=== PATIENT | female | born 1985 | race Caucasian/White ===

== ENCOUNTER 2016-09-20 15:57 | Inpatient (IN) | payer OTHER ==
[~2016-09-20] VITALS: Ht 175.3 cm; Wt 125.3 kg
[~2016-09-20 15:57] MED LIST: BACTRIM,SEPT1 TABLET PO; Diabeta,Micronase PO; KEFLEX500 MG PO; LIDOCAINE20 MG/1 M5 PO; Motrin PO; PREFERA-OB P1 TABLET PO; Percocet 5/325,Endoc PO; TYLENOL WITH C1 EACH PO; no meds
[2016-09-20 16:49] LABS: HEMATOCRIT 46.1 % (36.0-46.0); MCH 31.3 PG (29.0-34.0); MCHC 35.6 G/DL (30.0-36.0); MEAN PLAT.VOLUME 11.2 uM^3 (9.5-12.4); PLATELET COUNT 283 K/uL (156-360); RBC DIS.WIDTH-SD 38.5 % (39-53); RED BLOOD COUNT 5.24 M/uL (3.80-5.20); WHITE BLOOD COUNT 15.4 K/uL (4.1-10.2)
[2016-09-20 16:57] LABS: CHLORIDE 95 mEq/L (99-109); POTASSIUM 3.5 mEq/L (3.7-5.4); SODIUM 133 mEq/L (136-147)
[2016-09-20 16:59] LABS: GLUCOSE 369 mg/dL (70-99)
[2016-09-20 17:00] LABS: ANION GAP 15 MEQ/L (2-14)
[2016-09-20 17:01] LABS: TOTAL BILIRUBIN 0.6 mg/dL (0.0-1.0)
[2016-09-20 17:03] LABS: ALKALINE PHOSPHATASE 79 IU/L (3-129); GFR ESTIMATE (CALCULATED) > 59 mL/min/
[2016-09-20 17:04] LABS: UREA NITROGEN (BUN) 12 mg/dL (9-23)
[2016-09-20 17:18] LABS: QUANTITATIVE HCG < 4.0 MIU/ML
[2016-09-20 18:45] LABS: ADD MIUA? YES; BILIRUBIN NEGATIVE; BLOOD SMALL; COLOR YELLOW ((YELLOW)); GLUCOSE (STRIP) >=500; KETONES 20; LEUKOCYTES SMALL; NITRITE NEGATIVE; PROTEIN (STRIP) >=500; SPECIFIC GRAVITY 1.042 (1.000-1.030); UROBILINOGEN 0.2 MG/DL (0.2-1.0)
[2016-09-20 18:52] LABS: BACTERIA RARE /HPF; CALCIUM OXALATE CRYSTALS 1+ /HPF; EPITHELIAL CELLS 1+ /HPF; MUCUS NONE SEEN /LPF; RED BLOOD CELLS 40-50 /HPF (0-5); UCUL ADDED? NO; WHITE BLOOD CELLS 40-50 /HPF (0-5)
[2016-09-20 21:20] LABS: POINT-OF-CARE METER ID UU14100415
[2016-09-20 22:25] LABS: LIPASE 242 U/L (1.0-51.0)
[2016-09-20] MEDS ORDERED: MONISTAT 11 EACH VG (23:16)
[2016-09-20] MEDS ORDERED: FLINTSTONES GUM16 MG PO (23:16)
[2016-09-20] MEDS ORDERED: HYDROCHLOROTHIA25 MG PO (23:16)
[2016-09-21] VITALS (17 sets, daily range): BP systolic 80–163; BP diastolic 60–108
[2016-09-21 09:27] LABS: HEMATOCRIT 60.9 % (36.0-46.0); MCH 31.5 PG (29.0-34.0); MCHC 33.7 G/DL (30.0-36.0); RBC DIS.WIDTH-SD 43.5 % (39-53); WHITE BLOOD COUNT 11.3 K/uL (4.1-10.2)
[2016-09-21 09:38] LABS: CHLORIDE 89 mEq/L (99-109); POTASSIUM 3.9 mEq/L (3.7-5.4); SODIUM 131 mEq/L (136-147)
[2016-09-21 09:39] LABS: MCV 93.5 FL (83-99); RED BLOOD COUNT 6.51 M/uL (3.80-5.20)
[2016-09-21 09:41] LABS: ANION GAP 27 MEQ/L (2-14)
[2016-09-21 09:44] LABS: ALKALINE PHOSPHATASE 72 IU/L (3-129)
[2016-09-21 09:45] LABS: GFR ESTIMATE (CALCULATED) 37 mL/min/; TOTAL BILIRUBIN 1.5 mg/dL (0.0-1.0)
[2016-09-21 09:51] LABS: GLUCOSE 708 mg/dL (70-99)
[2016-09-21 10:05] LABS: UREA NITROGEN (BUN) 15 mg/dL (9-23)
[2016-09-21 10:19] LABS: LIPASE 3194 U/L (1.0-51.0); PLATELET COUNT UNABLE TO REPORT K/uL (156-360)
[2016-09-21 10:52] LABS: TRIGLYCERIDES 1686 MG/DL (Normal: <150)
[2016-09-21 13:02] LABS: GLUCOSE 711 mg/dL (70-99)
[2016-09-21 13:05] LABS: HEMATOCRIT 59.7 % (36.0-46.0); MCH 31.3 PG (29.0-34.0); MCHC 33.8 G/DL (30.0-36.0); MCV 92.6 FL (83-99); MEAN PLAT.VOLUME 11.8 uM^3 (9.5-12.4); PLATELET COUNT 301 K/uL (156-360); RBC DIS.WIDTH-CV 13.2 % (11.8-14.6); RBC DIS.WIDTH-SD 43.4 % (39-53); RED BLOOD COUNT 6.45 M/uL (3.80-5.20); WHITE BLOOD COUNT 10.8 K/uL (4.1-10.2)
[2016-09-21 13:10] LABS: CHLORIDE 94 mEq/L (99-109); POTASSIUM 4.6 mEq/L (3.7-5.4); SODIUM 127 mEq/L (136-147)
[2016-09-21 13:11] LABS: MAGNESIUM 1.1 mg/dL (1.3-2.7)
[2016-09-21 13:14] LABS: ANION GAP 19 MEQ/L (2-14)
[2016-09-21 13:15] LABS: TOTAL BILIRUBIN 1.5 mg/dL (0.0-1.0)
[2016-09-21 13:16] LABS: ALKALINE PHOSPHATASE 62 IU/L (3-129)
[2016-09-21 13:17] LABS: GFR ESTIMATE (CALCULATED) 31 mL/min/
[2016-09-21 13:18] LABS: UREA NITROGEN (BUN) 18 mg/dL (9-23)
[2016-09-21 13:32] LABS: GLUCOSE 711 mg/dL (70-99)
[2016-09-21 13:49] LABS: ABS NEUTROPHIL COUNT 8.6; EOSINOPHIL ABS CT 0; PLAT.SUFFICIENCY ADEQUATE; PLATELET CLUMPS PRESENT - PLATELET COUNT APPEARS ADQ.
[2016-09-21 14:08] LABS: Estimated Average Glucose 255 mg/dL (70-123); HEMOGLOBIN A1c (GLYCOHEMOGLOB) 10.5 % HGB (Below 5.7)
[2016-09-21 14:17] LABS: METH RESISTANT S AUREUS PCR NEGATIVE (NEGATIVE); PROBE CHECK PASS; SPECIMEN PROCESSING CONTROL PASS
[2016-09-21 16:33] LABS: ADD MIUA? YES; BILIRUBIN NEGATIVE; BLOOD SMALL; COLOR YELLOW ((YELLOW)); GLUCOSE (STRIP) >=500; KETONES NEGATIVE; LEUKOCYTES NEGATIVE; NITRITE NEGATIVE; PROTEIN (STRIP) 100; SPECIFIC GRAVITY 1.023 (1.000-1.030); UROBILINOGEN 0.2 MG/DL (0.2-1.0)
[2016-09-21 16:37] LABS: ANION GAP 16 MEQ/L (2-14); CHLORIDE 95 MEQ/L (99-109); POTASSIUM 3.9 MEQ/L (3.7-5.4); SAMPLE HEMOLYSIS CHECK 0; SAMPLE ICTERIC CHECK 0; SAMPLE LIPEMIA CHECK 0; SODIUM 126 MEQ/L (136-147)
[2016-09-21 16:47] LABS: GFR ESTIMATE (CALCULATED) 35 mL/min/; GLUCOSE 536 mg/dL (70-99); UREA NITROGEN (BUN) 19 mg/dL (9-23)
[2016-09-21 16:47] LABS: BACTERIA RARE /HPF; EPITHELIAL CELLS 1+ /HPF; MUCUS 1+ /LPF; UCUL ADDED? NO
[2016-09-21 16:56] LABS: UR CREATININE CONCENTRATION 122.7 MG/DL
[2016-09-21 20:17] LABS: ANION GAP 17 MEQ/L (2-14); CHLORIDE 97 MEQ/L (99-109); SAMPLE HEMOLYSIS CHECK 1; SAMPLE ICTERIC CHECK 0; SAMPLE LIPEMIA CHECK 0; SODIUM 127 MEQ/L (136-147)
[2016-09-21 20:22] LABS: GFR ESTIMATE (CALCULATED) 43 mL/min/; GLUCOSE 381 mg/dL (70-99); UREA NITROGEN (BUN) 20 mg/dL (9-23)
[2016-09-21 20:23] LABS: POTASSIUM 3.6 MEQ/L (3.7-5.4)
[2016-09-21 20:44] LABS: POINT-OF-CARE METER ID UU14174217
[2016-09-21 20:56] LABS: HDL CHOLESTEROL 9 MG/DL (Desirable>=50); NON-HDL CHOLESTEROL 155 mg/dL (Desirable<160); TOTAL CHOLESTEROL 164 mg/dL (Desirable<200); TRIGLYCERIDES 1127 MG/DL (Normal: <150)
[2016-09-21 21:44] LABS: POINT-OF-CARE METER ID UU14162636
[2016-09-21 22:45] LABS: POINT-OF-CARE METER ID UU14162636
[2016-09-21 23:51] LABS: POINT-OF-CARE METER ID UU14162636
[2016-09-22] VITALS (20 sets, daily range): BP systolic 86–168; BP diastolic 70–111
[2016-09-22 00:48] LABS: CHLORIDE 99 mEq/L (99-109); POTASSIUM 3.7 mEq/L (3.7-5.4); SODIUM 130 mEq/L (136-147)
[2016-09-22 00:50] LABS: GLUCOSE 278 mg/dL (70-99)
[2016-09-22 00:51] LABS: ANION GAP 14 MEQ/L (2-14)
[2016-09-22 00:54] LABS: GFR ESTIMATE (CALCULATED) 56 mL/min/
[2016-09-22 00:55] LABS: UREA NITROGEN (BUN) 21 mg/dL (9-23)
[2016-09-22 01:10] LABS: POINT-OF-CARE METER ID UU13113731
[2016-09-22 01:57] LABS: POINT-OF-CARE METER ID UU13113803
[2016-09-22 02:54] LABS: POINT-OF-CARE METER ID UU13113803
[2016-09-22 04:11] LABS: POINT-OF-CARE METER ID UU13113803
[2016-09-22 05:06] LABS: POINT-OF-CARE METER ID UU13113803
[2016-09-22 06:06] LABS: POINT-OF-CARE METER ID UU13113803
[2016-09-22 06:23] LABS: LIPASE 984 U/L (1.0-51.0)
[2016-09-22 06:27] LABS: AMYLASE 230 IU/L (1-118); ANION GAP 11 MEQ/L (2-14); CHLORIDE 99 MEQ/L (99-109); GFR ESTIMATE (CALCULATED) > 59 mL/min/; GLUCOSE 167 mg/dL (70-99); NON-HDL CHOLESTEROL 134 mg/dL (Desirable<160); POTASSIUM 3.3 MEQ/L (3.7-5.4); SAMPLE HEMOLYSIS CHECK 0; SAMPLE ICTERIC CHECK 0; SAMPLE LIPEMIA CHECK 0; SODIUM 129 MEQ/L (136-147); TOTAL CHOLESTEROL 141 mg/dL (Desirable<200); TRIGLYCERIDES 915 MG/DL (Normal: <150); UREA NITROGEN (BUN) 19 mg/dL (9-23)
[2016-09-22 06:29] LABS: HDL CHOLESTEROL 7 MG/DL (Desirable>=50)
[2016-09-22 06:55] LABS: ABS NEUTROPHIL COUNT 8.2; ATYPICAL LYMPHOCYTE 4.4 %; EOSINOPHIL ABS CT 0; HEMATOCRIT 52.1 % (36.0-46.0); INSTRUMENT ABS NEUTROPHIL CT 8.1 K/uL; LYMPHOCYTES 8.9 % (15.0-45.0); MCH 31.7 PG (29.0-34.0); MCHC 34.9 G/DL (30.0-36.0); MCV 90.6 FL (83-99); MEAN PLAT.VOLUME 11.4 uM^3 (9.5-12.4); PLAT.SUFFICIENCY ADEQUATE; PLATELET COUNT 222 K/uL (156-360); POIKILOCYTOSIS 1+; RBC DIS.WIDTH-SD 42.7 % (39-53); RED BLOOD COUNT 5.75 M/uL (3.80-5.20); SPHEROCYTES 1+
[2016-09-22 07:03] LABS: SEG.NEUTROPHILS 59.3 % (46.0-76.0)
[2016-09-22 07:38] LABS: POINT-OF-CARE METER ID UU13113803
[2016-09-22 08:56] LABS: POINT-OF-CARE METER ID UU13113803
[2016-09-22 10:15] LABS: ANION GAP 13 MEQ/L (2-14); CHLORIDE 99 MEQ/L (99-109); GFR ESTIMATE (CALCULATED) > 59 mL/min/; GLUCOSE 141 mg/dL (70-99); SAMPLE HEMOLYSIS CHECK 2; SAMPLE ICTERIC CHECK 0; SAMPLE LIPEMIA CHECK 0; SODIUM 130 MEQ/L (136-147); UREA NITROGEN (BUN) 20 mg/dL (9-23)
[2016-09-22 10:18] LABS: POTASSIUM 3.7 MEQ/L (3.7-5.4)
[2016-09-22 11:51] LABS: POINT-OF-CARE METER ID UU13113803
[2016-09-22 12:37] LABS: POINT-OF-CARE METER ID UU14174217
[2016-09-22 12:37] LABS: POINT-OF-CARE METER ID UU14162636
[2016-09-22 12:37] LABS: POINT-OF-CARE METER ID UU14174217
[2016-09-22 12:37] LABS: POINT-OF-CARE METER ID UU14174217
[2016-09-22 12:37] LABS: POINT-OF-CARE METER ID UU14162636
[2016-09-22 13:45] LABS: POINT-OF-CARE METER ID UU13113803
[2016-09-22 14:23] LABS: ANION GAP 13 MEQ/L (2-14); CHLORIDE 101 MEQ/L (99-109); GFR ESTIMATE (CALCULATED) > 59 mL/min/; GLUCOSE 151 mg/dL (70-99); NON-HDL CHOLESTEROL 127 mg/dL (Desirable<160); SAMPLE HEMOLYSIS CHECK 1; SAMPLE ICTERIC CHECK 0; SAMPLE LIPEMIA CHECK 0; SODIUM 131 MEQ/L (136-147); TOTAL CHOLESTEROL 132 mg/dL (Desirable<200); TRIGLYCERIDES 826 MG/DL (Normal: <150); UREA NITROGEN (BUN) 19 mg/dL (9-23)
[2016-09-22 14:27] LABS: HDL CHOLESTEROL 5 MG/DL (Desirable>=50); POTASSIUM 3.7 MEQ/L (3.7-5.4)
[2016-09-22 15:40] LABS: POINT-OF-CARE METER ID UU13113731
[2016-09-22 17:40] LABS: POINT-OF-CARE METER ID UU13113803
[2016-09-22 21:53] LABS: POINT-OF-CARE METER ID UU13113803
[2016-09-22 21:58] LABS: ALKALINE PHOSPHATASE 61 IU/L (3-129); ANION GAP 8 MEQ/L (2-14); CHLORIDE 103 MEQ/L (99-109); GFR ESTIMATE (CALCULATED) > 59 mL/min/; GLUCOSE 150 mg/dL (70-99); POTASSIUM 3.2 MEQ/L (3.7-5.4); SAMPLE HEMOLYSIS CHECK 0; SAMPLE ICTERIC CHECK 0; SAMPLE LIPEMIA CHECK 0; SODIUM 131 MEQ/L (136-147); TOTAL BILIRUBIN 0.7 MG/DL (0.0-1.0); UREA NITROGEN (BUN) 17 mg/dL (9-23)
[2016-09-23] VITALS (22 sets, daily range): BP systolic 126–170; BP diastolic 76–128
[2016-09-23 00:09] LABS: POINT-OF-CARE METER ID UU13113803
[2016-09-23 06:10] LABS: HEMATOCRIT 39.1 % (36.0-46.0); MCH 30.9 PG (29.0-34.0); MCV 90.9 FL (83-99); MEAN PLAT.VOLUME 11.5 uM^3 (9.5-12.4); PLATELET COUNT 198 K/uL (156-360); RBC DIS.WIDTH-SD 43.2 % (39-53); WHITE BLOOD COUNT 11.2 K/uL (4.1-10.2)
[2016-09-23 06:55] LABS: ANION GAP 9 MEQ/L (2-14); CHLORIDE 106 MEQ/L (99-109); GFR ESTIMATE (CALCULATED) > 59 mL/min/; GLUCOSE 158 mg/dL (70-99); MAGNESIUM 1.8 mg/dl (1.3-2.7); POTASSIUM 3.8 MEQ/L (3.7-5.4); SAMPLE HEMOLYSIS CHECK 0; SAMPLE ICTERIC CHECK 0; SAMPLE LIPEMIA CHECK 0; SODIUM 132 MEQ/L (136-147); TRIGLYCERIDES 436 MG/DL (Normal: <150); UREA NITROGEN (BUN) 13 mg/dL (9-23)
[2016-09-23 07:06] LABS: AMYLASE 143 IU/L (1-118)
[2016-09-23 08:44] LABS: ABS NEUTROPHIL COUNT 9.5; ANISOCYTOSIS 1+; ATYPICAL LYMPHOCYTE 0.9 %; BAND NEUTROPHILS 27.1 % (0-8.0); EOSINOPHIL ABS CT 0.1; EOSINOPHILS 0.9 % (0-5.0); INSTRUMENT ABS NEUTROPHIL CT 9.1 K/uL; LYMPHOCYTES 6.6 % (15.0-45.0); METAMYELOCYTES 0.9 %; PLAT.SUFFICIENCY ADEQUATE
[2016-09-23 09:17] LABS: POINT-OF-CARE METER ID UU14174217
[2016-09-23 10:22] LABS: POINT-OF-CARE METER ID UU14174217
[2016-09-23 11:30] LABS: POINT-OF-CARE METER ID UU14174217
[2016-09-23 13:11] LABS: POINT-OF-CARE METER ID UU14174217
[2016-09-23 15:25] LABS: POINT-OF-CARE METER ID UU14174217
[2016-09-23 15:26] LABS: ANION GAP 8 MEQ/L (2-14); CHLORIDE 107 MEQ/L (99-109); GFR ESTIMATE (CALCULATED) > 59 mL/min/; GLUCOSE 152 mg/dL (70-99); POTASSIUM 3.9 MEQ/L (3.7-5.4); SAMPLE HEMOLYSIS CHECK 0; SAMPLE ICTERIC CHECK 0; SAMPLE LIPEMIA CHECK 0; SODIUM 134 MEQ/L (136-147); UREA NITROGEN (BUN) 9 mg/dL (9-23)
[2016-09-23 17:12] LABS: POINT-OF-CARE METER ID UU14174217
[2016-09-23 18:41] LABS: POINT-OF-CARE METER ID UU14174217
[2016-09-23 19:44] LABS: POINT-OF-CARE METER ID UU14174217
[2016-09-23 20:57] LABS: POINT-OF-CARE METER ID UU14174217
[2016-09-23 21:59] LABS: POINT-OF-CARE METER ID UU13113803
[2016-09-24] VITALS (19 sets, daily range): BP systolic 114–161; BP diastolic 72–105
[2016-09-24 00:18] LABS: POINT-OF-CARE METER ID UU13113803
[2016-09-24 01:47] LABS: POINT-OF-CARE METER ID UU13113803
[2016-09-24 05:29] LABS: POINT-OF-CARE METER ID UU13113803
[2016-09-24 06:21] LABS: HEMATOCRIT 34.7 % (36.0-46.0); MCH 30.9 PG (29.0-34.0); MCHC 33.1 G/DL (30.0-36.0); MCV 93.3 FL (83-99); MEAN PLAT.VOLUME 11.4 uM^3 (9.5-12.4); PLATELET COUNT 181 K/uL (156-360); RBC DIS.WIDTH-CV 13.2 % (11.8-14.6); RBC DIS.WIDTH-SD 45.6 % (39-53); RED BLOOD COUNT 3.72 M/uL (3.80-5.20); WHITE BLOOD COUNT 10.2 K/uL (4.1-10.2)
[2016-09-24 07:24] LABS: ABS NEUTROPHIL COUNT 7.9; EOSINOPHIL ABS CT 0.2; INSTRUMENT ABS NEUTROPHIL CT 8.2 K/uL; PLAT.SUFFICIENCY ADEQUATE
[2016-09-24 07:41] LABS: ANION GAP 14 MEQ/L (2-14); CHLORIDE 104 MEQ/L (99-109); GFR ESTIMATE (CALCULATED) > 59 mL/min/; GLUCOSE 146 mg/dL (70-99); MAGNESIUM 1.9 mg/dl (1.3-2.7); POTASSIUM 3.6 MEQ/L (3.7-5.4); SAMPLE HEMOLYSIS CHECK 0; SAMPLE ICTERIC CHECK 0; SAMPLE LIPEMIA CHECK 0; SODIUM 137 MEQ/L (136-147); UREA NITROGEN (BUN) 6 mg/dL (9-23)
[2016-09-24 08:45] LABS: TRIGLYCERIDES 265 MG/DL (Normal: <150)
[2016-09-24 08:54] LABS: POINT-OF-CARE METER ID UU13113803
[2016-09-24 10:37] LABS: Estimated Average Glucose 252 mg/dL (70-123); HEMOGLOBIN A1c (GLYCOHEMOGLOB) 10.4 % HGB (Below 5.7)
[2016-09-24 12:25] LABS: POINT-OF-CARE METER ID UU13113803
[2016-09-24 17:05] LABS: POINT-OF-CARE METER ID UU13113803
[2016-09-24 21:39] LABS: POINT-OF-CARE METER ID UU14162636
[2016-09-25] VITALS (8 sets, daily range): BP systolic 127–210; BP diastolic 77–98
[2016-09-25 02:02] LABS: POINT-OF-CARE METER ID UU14162636
[2016-09-25 05:43] LABS: POINT-OF-CARE METER ID UU14162636
[2016-09-25 06:00] LABS: HEMATOCRIT 33.9 % (36.0-46.0); MCH 30.7 PG (29.0-34.0); MCHC 33.3 G/DL (30.0-36.0); MCV 92.1 FL (83-99); MEAN PLAT.VOLUME 10.7 uM^3 (9.5-12.4); NRBC (%) 0.3 /100 WBC (0-0); PLATELET COUNT 214 K/uL (156-360); RBC DIS.WIDTH-CV 13.3 % (11.8-14.6); RBC DIS.WIDTH-SD 45.1 % (39-53); RED BLOOD COUNT 3.68 M/uL (3.80-5.20); WHITE BLOOD COUNT 9.3 K/uL (4.1-10.2)
[2016-09-25 06:19] LABS: CHLORIDE 98 MEQ/L (99-109); GFR ESTIMATE (CALCULATED) > 59 mL/min/; GLUCOSE 171 mg/dL (70-99); POTASSIUM 3.4 MEQ/L (3.7-5.4); SODIUM 135 MEQ/L (136-147); UREA NITROGEN (BUN) 4 mg/dL (9-23)
[2016-09-25 06:28] LABS: ANION GAP 12 MEQ/L (2-14); CHLORIDE 98 MEQ/L (99-109); GFR ESTIMATE (CALCULATED) > 59 mL/min/; GLUCOSE 171 mg/dL (70-99); POTASSIUM 3.4 MEQ/L (3.7-5.4); SAMPLE HEMOLYSIS CHECK 0; SAMPLE ICTERIC CHECK 0; SAMPLE LIPEMIA CHECK 0; SODIUM 134 MEQ/L (136-147); TOTAL BILIRUBIN 0.7 MG/DL (0.0-1.0); UREA NITROGEN (BUN) 4 mg/dL (9-23)
[2016-09-25 06:29] LABS: ALKALINE PHOSPHATASE 105 IU/L (3-129)
[2016-09-25 06:31] LABS: ANION GAP 12 MEQ/L (2-14); SAMPLE HEMOLYSIS CHECK 0; SAMPLE ICTERIC CHECK 0; SAMPLE LIPEMIA CHECK 0
[2016-09-25 06:35] LABS: MAGNESIUM 2.2 mg/dl (1.3-2.7)
[2016-09-25 08:14] LABS: POINT-OF-CARE METER ID UU13113731
[2016-09-25 09:30] LABS: ABS NEUTROPHIL COUNT 7.7; EOSINOPHIL ABS CT 0; INSTRUMENT ABS NEUTROPHIL CT 6.6 K/uL
[2016-09-25 12:44] LABS: POINT-OF-CARE METER ID UU13113731
[2016-09-25 13:42] LABS: ANION GAP 10 MEQ/L (2-14); CHLORIDE 100 MEQ/L (99-109); GFR ESTIMATE (CALCULATED) > 59 mL/min/; GLUCOSE 191 mg/dL (70-99); POTASSIUM 3.1 MEQ/L (3.7-5.4); SAMPLE HEMOLYSIS CHECK 0; SAMPLE ICTERIC CHECK 0; SAMPLE LIPEMIA CHECK 0; SODIUM 135 MEQ/L (136-147); UREA NITROGEN (BUN) 3 mg/dL (9-23)
[2016-09-25 17:23] LABS: POINT-OF-CARE METER ID UU14162636; POINT-OF-CARE USER ID 606021424
[2016-09-25 21:38] LABS: POINT-OF-CARE METER ID UU13113803
[2016-09-26] VITALS: BP 149/96
[2016-09-26 00:19] LABS: POINT-OF-CARE METER ID UU13113803
[2016-09-26 04:00] VITALS: BP 132/92
[2016-09-26 06:24] LABS: ANION GAP 14 MEQ/L (2-14); CHLORIDE 98 MEQ/L (99-109); GFR ESTIMATE (CALCULATED) > 59 mL/min/; GLUCOSE 179 mg/dL (70-99); LIPASE 261 U/L (1.0-51.0); MAGNESIUM 1.9 mg/dl (1.3-2.7); POTASSIUM 3.2 MEQ/L (3.7-5.4); SAMPLE HEMOLYSIS CHECK 0; SAMPLE ICTERIC CHECK 0; SAMPLE LIPEMIA CHECK 0; SODIUM 135 MEQ/L (136-147); UREA NITROGEN (BUN) 5 mg/dL (9-23)
[2016-09-26 06:25] LABS: AMYLASE 51 IU/L (1-118)
[2016-09-26 06:37] LABS: HEMATOCRIT 36.6 % (36.0-46.0); MCH 30.5 PG (29.0-34.0); MCHC 32.8 G/DL (30.0-36.0); MCV 92.9 FL (83-99); MEAN PLAT.VOLUME 10.8 uM^3 (9.5-12.4); NRBC (%) 0.7 /100 WBC (0-0); PLATELET COUNT 248 K/uL (156-360); RBC DIS.WIDTH-CV 13.4 % (11.8-14.6); RBC DIS.WIDTH-SD 46.1 % (39-53); RED BLOOD COUNT 3.94 M/uL (3.80-5.20); WHITE BLOOD COUNT 9.2 K/uL (4.1-10.2)
[2016-09-26 08:00] VITALS: BP 148/87
[2016-09-26 09:03] LABS: ABS NEUTROPHIL COUNT 7.6; EOSINOPHIL ABS CT 0; INSTRUMENT ABS NEUTROPHIL CT 6.9 K/uL; PLAT.SUFFICIENCY ADEQUATE; POLYCHROMASIA 1+
[2016-09-26 12:00] VITALS: BP 154/88
[2016-09-26 12:43] LABS: POINT-OF-CARE METER ID UU13113803
[2016-09-26 16:00] VITALS: BP 133/93
[2016-09-26 17:58] LABS: POINT-OF-CARE METER ID UU13113803
[2016-09-26 19:45] LABS: POINT-OF-CARE METER ID UU13113803
[2016-09-26 20:00] VITALS: BP 164/101
[2016-09-27] VITALS (7 sets, daily range): BP systolic 136–168; BP diastolic 81–108
[2016-09-27 00:30] LABS: POINT-OF-CARE METER ID UU13113803
[2016-09-27 04:27] LABS: POINT-OF-CARE METER ID UU13113803
[2016-09-27 06:00] LABS: HEMATOCRIT 37.2 % (36.0-46.0); MCH 30.2 PG (29.0-34.0); MCHC 32.8 G/DL (30.0-36.0); MCV 92.1 FL (83-99); MEAN PLAT.VOLUME 10.7 uM^3 (9.5-12.4); NRBC (%) 0.3 /100 WBC (0-0); PLATELET COUNT 231 K/uL (156-360); RBC DIS.WIDTH-CV 13.2 % (11.8-14.6); RBC DIS.WIDTH-SD 45.4 % (39-53); RED BLOOD COUNT 4.04 M/uL (3.80-5.20); WHITE BLOOD COUNT 8.9 K/uL (4.1-10.2)
[2016-09-27 06:49] LABS: ANION GAP 12 MEQ/L (2-14); CHLORIDE 98 MEQ/L (99-109); GFR ESTIMATE (CALCULATED) > 59 mL/min/; GLUCOSE 174 mg/dL (70-99); SAMPLE HEMOLYSIS CHECK 0; SAMPLE ICTERIC CHECK 0; SAMPLE LIPEMIA CHECK 0; SODIUM 136 MEQ/L (136-147); UREA NITROGEN (BUN) 5 mg/dL (9-23)
[2016-09-27 06:50] LABS: ABS NEUTROPHIL COUNT 6.8; ATYPICAL LYMPHOCYTE 0.9 %; BAND NEUTROPHILS 30.4 % (0-8.0); EOSINOPHIL ABS CT 0; INSTRUMENT ABS NEUTROPHIL CT 6.7 K/uL; LYMPHOCYTES 9.6 % (15.0-45.0); METAMYELOCYTES 0.9 %; MYELOCYTES 1.7 %; NUCLEATED RBC'S 0.9; PLAT.SUFFICIENCY ADEQUATE; SEG.NEUTROPHILS 46.1 % (46.0-76.0)
[2016-09-27 08:47] LABS: POINT-OF-CARE METER ID UU13113731
[2016-09-27 17:38] LABS: POINT-OF-CARE METER ID UU13113807; POINT-OF-CARE USER ID 606021404
[2016-09-27 22:31] LABS: C DIFF TOXIN NEGATIVE (NEGATIVE)
[2016-09-27 22:36] LABS: PROBE CHECK PASS; SPECIMEN PROCESSING CONTROL PASS
[2016-09-27 23:19] LABS: POINT-OF-CARE METER ID UU13113807
[2016-09-28 00:11] VITALS: BP 170/92
[2016-09-28 04:00] VITALS: BP 144/72
[2016-09-28 07:03] LABS: HEMATOCRIT 34.6 % (36.0-46.0); MCH 30.2 PG (29.0-34.0); MCHC 33.2 G/DL (30.0-36.0); MCV 90.8 FL (83-99); MEAN PLAT.VOLUME 10.3 uM^3 (9.5-12.4); PLATELET COUNT 265 K/uL (156-360); RBC DIS.WIDTH-CV 13.2 % (11.8-14.6); RBC DIS.WIDTH-SD 44.4 % (39-53); RED BLOOD COUNT 3.81 M/uL (3.80-5.20); WHITE BLOOD COUNT 8.9 K/uL (4.1-10.2)
[2016-09-28 07:29] LABS: ANION GAP 11 MEQ/L (2-14); CHLORIDE 102 MEQ/L (99-109); GFR ESTIMATE (CALCULATED) > 59 mL/min/; GLUCOSE 195 mg/dL (70-99); MAGNESIUM 1.8 mg/dl (1.3-2.7); SAMPLE HEMOLYSIS CHECK 0; SAMPLE ICTERIC CHECK 0; SAMPLE LIPEMIA CHECK 0; SODIUM 138 MEQ/L (136-147); UREA NITROGEN (BUN) 4 mg/dL (9-23)
[2016-09-28 08:00] VITALS: BP 164/94
[2016-09-28 08:10] LABS: POINT-OF-CARE METER ID UU13113807; POINT-OF-CARE USER ID 606021404
[2016-09-28 08:35] LABS: ABS NEUTROPHIL COUNT 7.5; ANISOCYTOSIS 1+; BAND NEUTROPHILS 36.2 % (0-8.0); EOSINOPHIL ABS CT 0.1; EOSINOPHILS 0.9 % (0-5.0); INSTRUMENT ABS NEUTROPHIL CT 7.2 K/uL; LYMPHOCYTES 10.3 % (15.0-45.0); PLAT.SUFFICIENCY ADEQUATE; POLYCHROMASIA 1+; SEG.NEUTROPHILS 48.3 % (46.0-76.0)
[2016-09-28 11:49] LABS: POINT-OF-CARE METER ID UU13113807; POINT-OF-CARE USER ID 606021404
[2016-09-28 12:26] VITALS: BP 171/99
[2016-09-28 16:13] VITALS: BP 159/97
[2016-09-28 17:35] LABS: POINT-OF-CARE METER ID UU13113807
[2016-09-28] MEDS ORDERED: NIACIN ER750 MG PO (21:02)
[2016-09-28] MEDS ORDERED: LOPRESSOR25 MG PO (21:02)
[2016-09-28] MEDS ORDERED: ATORVASTATIN CA80 MG PO (21:02)
[2016-09-28] MEDS ORDERED: MYLICON,MYLANTA80 MG PO (21:05)
[2016-09-28] MEDS ORDERED: PANTOPRAZOLE SO40 MG PO (21:06)
[2016-09-28] MEDS ORDERED: LOFIBRA,TRIGLI160 MG PO (21:07)
[2016-09-28] MEDS ORDERED: KLOR-CON M2020 MEQ PO (21:08)
[2016-09-28] MEDS ORDERED: Thiamine,Vitamin B1 PO (21:10)
[2016-09-28] MEDS ORDERED: ENDOCET 5-3251 EACH PO (21:10)
[2016-09-28] MEDS ORDERED: METFORMIN HCL1000 MG PO (21:13)
[2016-09-28] MEDS ORDERED: VALSARTAN160 MG PO (21:26)
[2016-09-28 21:35] LABS: POINT-OF-CARE METER ID UU13113807
[2016-09-28 23:15] VITALS: BP 141/92
[2016-09-29 00:15] VITALS: BP 140/91
[2016-09-29 06:12] LABS: HEMATOCRIT 34.6 % (36.0-46.0); MCH 30.2 PG (29.0-34.0); MCHC 32.9 G/DL (30.0-36.0); MCV 91.5 FL (83-99); MEAN PLAT.VOLUME 10.3 uM^3 (9.5-12.4); PLATELET COUNT 281 K/uL (156-360); RBC DIS.WIDTH-CV 13.2 % (11.8-14.6); RBC DIS.WIDTH-SD 44.7 % (39-53); RED BLOOD COUNT 3.78 M/uL (3.80-5.20); WHITE BLOOD COUNT 10.4 K/uL (4.1-10.2)
[2016-09-29 06:41] LABS: ANION GAP 11 MEQ/L (2-14); CHLORIDE 101 MEQ/L (99-109); GFR ESTIMATE (CALCULATED) > 59 mL/min/; GLUCOSE 164 mg/dL (70-99); LIPASE 358 U/L (1.0-51.0); MAGNESIUM 1.8 mg/dl (1.3-2.7); POTASSIUM 3.2 MEQ/L (3.7-5.4); SAMPLE HEMOLYSIS CHECK 0; SAMPLE ICTERIC CHECK 0; SAMPLE LIPEMIA CHECK 0; SODIUM 136 MEQ/L (136-147); UREA NITROGEN (BUN) 5 mg/dL (9-23)
[2016-09-29 08:00] VITALS: BP 161/99
[2016-09-29 08:01] LABS: ABS NEUTROPHIL COUNT 8.5; BAND NEUTROPHILS 17.1 % (0-8.0); EOSINOPHIL ABS CT 0; INSTRUMENT ABS NEUTROPHIL CT 8.4 K/uL; LYMPHOCYTES 8.5 % (15.0-45.0); METAMYELOCYTES 1.7 %; MYELOCYTES 0.9 %; PLAT.SUFFICIENCY ADEQUATE; SMUDGE CELLS 9.4
[2016-09-29 08:26] LABS: POINT-OF-CARE METER ID UU13113807
[2016-09-29 11:56] LABS: POINT-OF-CARE METER ID UU13113807
[2016-09-29] MEDS ORDERED: NOVOLOG PE100 UNITS/ SC (11:56)
[2016-09-29] MEDS ORDERED: LIBRIUM10 MG PO (11:57)
[2016-09-29 12:00] VITALS: BP 128/69
== END 2016-09-29 15:24 | disposition home or self-care (01) | DRG 438 ==
LOC: EME 15:57 → EDOF 23:27 → 4SOUTH 23:27 → 4WEST 23:27 → 3EAST 09-21 00:24 → 4WEST 09-21 12:58 → 4SOUTH 09-27 16:46
PROVIDERS: Emergency Medicine; Family Medicine; Family Medicine Sports Medicine; Internal Medicine; Internal Medicine Nephrology; Specialist
DX: K85.20 Alcohol induced acute pancreatitis without necrosis or infection (principal); E13.10 Other specified diabetes mellitus with ketoacidosis without coma; E87.1 Hypo-osmolality and hyponatremia; N17.9 Acute kidney failure, unspecified; Z68.41 Body mass index [BMI] 40.0-44.9, adult; R19.7 Diarrhea, unspecified; E86.0 Dehydration; E78.1 Pure hyperglyceridemia; E83.51 Hypocalcemia; E87.6 Hypokalemia; E83.42 Hypomagnesemia; E83.39 Other disorders of phosphorus metabolism; I95.9 Hypotension, unspecified; F10.10 Alcohol abuse, uncomplicated; K76.0 Fatty (change of) liver, not elsewhere classified; J44.9 Chronic obstructive pulmonary disease, unspecified; K21.9 Gastro-esophageal reflux disease without esophagitis; F41.9 Anxiety disorder, unspecified; I10 Essential (primary) hypertension; J45.909 Unspecified asthma, uncomplicated; F17.210 Nicotine dependence, cigarettes, uncomplicated; E66.9 Obesity, unspecified
CPT/HCPCS: 71010; 74000; 74177; 76937; 80048; 80048 91; 80053; 80061; 81003; 82150; 82570; 82607; 82746; 82948; 83036; 83605; 83690; 83735; 84100; 84156; 84300; 84425 90; 84443; 84478; 84702; 84999; 85025; 85027; 87040; 87086; 87493; 87641; 93005; 94799; 99281; 99285; C1894; C9113; G0480; J0610; J1170; J1650; J1815; J2270; J2405; J2543; J2765; J3010; J3475; J3480; J7030; J7040; J7042; J7050; J7120; S0028

== ENCOUNTER 2016-10-12 12:35 | Emergency (ER) | payer OTHER ==
[~2016-10-12] VITALS: Ht 175.3 cm; Wt 104.6 kg
[~2016-10-12 12:35] MED LIST changes: +ATORVASTATIN CA80 MG PO; +ENDOCET 5-3251 EACH PO; +FLINTSTONES GUM16 MG PO; +HYDROCHLOROTHIA25 MG PO; +KLOR-CON M2020 MEQ PO; +LIBRIUM10 MG PO; +LOFIBRA,TRIGLI160 MG PO; +LOPRESSOR25 MG PO; +METFORMIN HCL1000 MG PO; +MONISTAT 11 EACH VG; +MYLICON,MYLANTA80 MG PO; +NIACIN ER750 MG PO; +NOVOLOG PE100 UNITS/ SC; +PANTOPRAZOLE SO40 MG PO; +Thiamine,Vitamin B1 PO; +VALSARTAN160 MG PO
[2016-10-12 13:45] LABS: ADD MIUA? YES; BILIRUBIN NEGATIVE; BLOOD SMALL; COLOR YELLOW ((YELLOW)); GLUCOSE (STRIP) NEGATIVE; KETONES NEGATIVE; LEUKOCYTES NEGATIVE; NITRITE NEGATIVE; PROTEIN (STRIP) 100
[2016-10-12 14:03] LABS: BACTERIA NONE SEEN /HPF; EPITHELIAL CELLS 1+ /HPF; MUCUS NONE SEEN /LPF; UCUL ADDED? NO; WHITE BLOOD CELLS 0-5 /HPF (0-5)
[2016-10-12 14:07] LABS: CHLORIDE 91 mEq/L (99-109); POTASSIUM 4.1 mEq/L (3.7-5.4); SODIUM 130 mEq/L (136-147)
[2016-10-12 14:10] LABS: GLUCOSE 167 mg/dL (70-99)
[2016-10-12 14:11] LABS: ANION GAP 14 MEQ/L (2-14)
[2016-10-12 14:12] LABS: TOTAL BILIRUBIN 0.9 mg/dL (0.0-1.0)
[2016-10-12 14:13] LABS: ALKALINE PHOSPHATASE 116 IU/L (3-129); GFR ESTIMATE (CALCULATED) > 59 mL/min/; MCH 29.5 PG (29.0-34.0); MCHC 32.6 G/DL (30.0-36.0); MCV 90.4 FL (83-99); MEAN PLAT.VOLUME 10.3 uM^3 (9.5-12.4); RBC DIS.WIDTH-CV 12.9 % (11.8-14.6); RBC DIS.WIDTH-SD 42.4 % (39-53); RED BLOOD COUNT 3.76 M/uL (3.80-5.20); WHITE BLOOD COUNT 8.7 K/uL (4.1-10.2)
[2016-10-12 14:14] LABS: PLATELET COUNT 449 K/uL (156-360); UREA NITROGEN (BUN) 6 mg/dL (9-23)
[2016-10-12 14:17] LABS: LIPASE 248 U/L (1.0-51.0)
[2016-10-12 14:24] LABS: QUANTITATIVE HCG < 4.0 MIU/ML
[2016-10-12] MEDS ORDERED: DIGESTIVE EN1 TABLET PO (15:05)
[2016-10-12] MEDS ORDERED: OXAYDO5 MG PO (15:05)
[2016-10-12 15:31] VITALS: BP 124/87
== END 2016-10-12 15:32 | disposition home or self-care (01) ==
LOC: EME 12:35
DX: K86.1 Other chronic pancreatitis (principal); Z87.440 Personal history of urinary (tract) infections; J45.909 Unspecified asthma, uncomplicated; I10 Essential (primary) hypertension; K21.9 Gastro-esophageal reflux disease without esophagitis; Z87.891 Personal history of nicotine dependence
CPT/HCPCS: 80053; 81003; 83690; 84702; 85027; 99281; 99284; J3010; J7030

== ENCOUNTER 2016-10-26 10:40 | Emergency (ER) | payer OTHER ==
[~2016-10-26] VITALS: Ht 175.3 cm; Wt 99.9 kg
[~2016-10-26 10:40] MED LIST changes: +DIGESTIVE EN1 TABLET PO; +OXAYDO5 MG PO
[2016-10-26 11:37] LABS: EOSINOPHIL COUNT 0.1 K/uL (0-0.3); HEMATOCRIT 37.5 % (36.0-46.0); IMMATURE GRANULOCYTE (%) 0.2 % (0.0-0.7); INSTRUMENT ABS NEUTROPHIL CT 6.2 K/uL; LYMPHOCYTE COUNT 1.3 K/uL (1.0-2.8); MCH 28.4 PG (29.0-34.0); MCHC 31.7 G/DL (30.0-36.0); MCV 89.5 FL (83-99); MEAN PLAT.VOLUME 9.7 uM^3 (9.5-12.4); MONOCYTE (%) 9.5 % (3-12); MONOCYTE COUNT 0.8 K/uL (0-0.8); NEUTROPHIL (%) 74.1 % (45-76); NEUTROPHIL COUNT 6.2 K/uL (1.8-6.4); PLATELET COUNT 633 K/uL (156-360); RBC DIS.WIDTH-CV 13.9 % (11.8-14.6); RBC DIS.WIDTH-SD 45.3 % (39-53); RED BLOOD COUNT 4.19 M/uL (3.80-5.20); WHITE BLOOD COUNT 8.4 K/uL (4.1-10.2)
[2016-10-26 11:44] LABS: CHLORIDE 101 mEq/L (99-109); POTASSIUM 3.6 mEq/L (3.7-5.4); SODIUM 136 mEq/L (136-147)
[2016-10-26 11:46] LABS: GLUCOSE 166 mg/dL (70-99)
[2016-10-26 11:47] LABS: ANION GAP 15 MEQ/L (2-14)
[2016-10-26 11:49] LABS: GFR ESTIMATE (CALCULATED) > 59 mL/min/
[2016-10-26 11:50] LABS: UREA NITROGEN (BUN) 9 mg/dL (9-23)
[2016-10-26 11:52] LABS: LIPASE 144 U/L (1.0-51.0)
[2016-10-26] MEDS ORDERED: PERCOCET 5/31 TABLET PO (14:51)
[2016-10-26 15:23] VITALS: BP 132/78
== END 2016-10-26 15:25 | disposition home or self-care (01) ==
LOC: EME 10:40
PROVIDERS: Emergency Medicine
DX: S80.02XA Contusion of left knee, initial encounter (principal); V53.6XXA Passenger in pick-up truck or van injured in collision with car, pick-up truck or van in traffic accident, initial encounter; Y92.410 Unspecified street and highway as the place of occurrence of the external cause; K86.0 Alcohol-induced chronic pancreatitis; F10.20 Alcohol dependence, uncomplicated; K86.3 Pseudocyst of pancreas; J45.909 Unspecified asthma, uncomplicated; I10 Essential (primary) hypertension; K21.9 Gastro-esophageal reflux disease without esophagitis; Z87.891 Personal history of nicotine dependence
CPT/HCPCS: 71020; 73564; 74177; 80048; 83690; 85025; 99281; 99285; J2270; J7030

== ENCOUNTER 2016-11-23 18:45 | Emergency (ER) | payer OTHER ==
[~2016-11-23] VITALS: Ht 175.3 cm; Wt 99.7 kg
[~2016-11-23 18:45] MED LIST changes: +PERCOCET 5/31 TABLET PO
[2016-11-23 19:27] LABS: HEMATOCRIT 33.8 % (36.0-46.0); MCH 27.3 PG (29.0-34.0); MCV 85.6 FL (83-99); RBC DIS.WIDTH-CV 15.6 % (11.8-14.6); RBC DIS.WIDTH-SD 49.1 % (39-53); RED BLOOD COUNT 3.95 M/uL (3.80-5.20); WHITE BLOOD COUNT 8.6 K/uL (4.1-10.2)
[2016-11-23 19:30] LABS: CHLORIDE 105 mEq/L (99-109); SODIUM 140 mEq/L (136-147)
[2016-11-23 19:32] LABS: GLUCOSE 138 mg/dL (70-99)
[2016-11-23 19:33] LABS: ANION GAP 12 MEQ/L (2-14)
[2016-11-23 19:34] LABS: TOTAL BILIRUBIN 0.4 mg/dL (0.0-1.0)
[2016-11-23 19:35] LABS: ALKALINE PHOSPHATASE 121 IU/L (3-129)
[2016-11-23 19:36] LABS: GFR ESTIMATE (CALCULATED) > 59 mL/min/
[2016-11-23 19:37] LABS: UREA NITROGEN (BUN) 8 mg/dL (9-23)
[2016-11-23 19:39] LABS: LIPASE 42 U/L (1.0-51.0)
[2016-11-23 19:57] LABS: QUANTITATIVE HCG < 4.0 MIU/ML
[2016-11-23 20:18] LABS: HEMATOLOGY COMMENT 1 SN; MEAN PLAT.VOLUME 10.7 uM^3 (9.5-12.4); PLAT.SUFFICIENCY ADEQUATE; PLATELET COUNT 331 K/uL (156-360)
[2016-11-23 20:28] LABS: AMYLASE 29 IU/L (1-118)
[2016-11-23] MEDS ORDERED: DICYCLOMINE HCL20 MG PO (21:41)
[2016-11-23] MEDS ORDERED: VALSARTAN160 MG PO (21:41)
[2016-11-23] MEDS ORDERED: METFORMIN HCL1000 MG PO (21:42)
[2016-11-23] MEDS ORDERED: DEXILANT60 MG PO (21:42)
[2016-11-23] MEDS ORDERED: NIACIN500 M4 PO (21:42)
[2016-11-23] MEDS ORDERED: OXAYDO5 MG PO ×2 (21:42→23:57)
[2016-11-24 00:16] VITALS: BP 139/100
[2016-11-24 00:21] LABS: ADD MIUA? YES; BILIRUBIN NEGATIVE; BLOOD NEGATIVE; COLOR YELLOW ((YELLOW)); GLUCOSE (STRIP) NEGATIVE; KETONES NEGATIVE; LEUKOCYTES MODERATE; NITRITE NEGATIVE; PROTEIN (STRIP) 100; SPECIFIC GRAVITY 1.035 (1.000-1.030); UROBILINOGEN 0.2 MG/DL (0.2-1.0)
[2016-11-24 00:32] LABS: BACTERIA NONE SEEN /HPF; EPITHELIAL CELLS 1+ /HPF; MUCUS TRACE /LPF; RED BLOOD CELLS 0-5 /HPF (0-5); UCUL ADDED? NO
== END 2016-11-24 00:17 | disposition home or self-care (01) ==
LOC: EME 18:45
DX: K86.0 Alcohol-induced chronic pancreatitis (principal); R11.2 Nausea with vomiting, unspecified; R19.7 Diarrhea, unspecified; I10 Essential (primary) hypertension; J45.909 Unspecified asthma, uncomplicated; K21.9 Gastro-esophageal reflux disease without esophagitis; Z87.891 Personal history of nicotine dependence
CPT/HCPCS: 80053; 81003; 82150; 83690; 84702; 85027; 99281; 99284; J2405; J3010